=== PATIENT | female | born 1990 | race Caucasian/White ===

== ENCOUNTER 2018-08-16 10:01 | Emergency (ER) | payer MEDICAID, SELFPAY ==
[2018-08-16 10:08] VITALS: BP 97/55; PULSE 97; RESP 19; TEMP 36.5; O2SAT 98
[2018-08-16] MEDS: Ketorolac 30 MG/ML VIAL IVP (11:00)
[2018-08-16] MEDS: Normal Saline 1,000 ML 1000 ML IV (11:00)
[2018-08-16 11:07] LABS: Absolute Basophil Count 0.01 k/cumm (0.0-0.2); Absolute Eosinophil Count 0.17 k/cumm (0.0-0.7); Absolute Lymphocyte Count 1.09 k/cumm (1.2-3.4); Absolute Monocyte Count 0.55 k/cumm (0.11-0.7); Absolute Neutrophil Count 4.48 k/cumm (1.2-6.7); Basophils % 0.2; Eosinophils % 2.7; HGB 12.7 g/dL (12.0-15.5); Lymphocytes % 17.3; Mean Corp. HGB Concentration 33.4 g/dL (32.0-36.0); Mean Corpuscular Hemoglobin 31.4 pg (27.0-33.0); Mean Corpuscular Volume 94.1 fL (80-95); Mean Platelet Volume 11.4 fL (8.0-11.0); Monocytes % 8.7; Neutrophils % 71.1; Platelet Count 179 x1000/uL (130-400); RBC 4.04 m/cumm (4.00-5.20); RBC Distribution Width 13.1 % (11.7-14.6)
[2018-08-16 11:08] LABS: Bilirubin Negative (Negative); Blood Trace-intact (Negative); Clarity Clear; Glucose Negative (Negative); Ketones 15 mg/dL (Negative); Leukocyte Esterase Negative (Negative); Nitrite Negative (Negative); Specific Gravity 1.015 (1.005-1.025); Urobilinogen 0.2 EU/dL (Up TO 0.2); pH 6.5 (5-8)
[2018-08-16 11:15] LABS: Mono Screening Negative (Negative)
[2018-08-16 11:20] LABS: ALT 41 U/L (12-78); AST 36 U/L (15-37); Albumin 3.2 g/dL (3.4-5.0); Alkaline Phosphatase 81 U/L (46-116); Anion Gap 7.6 mmol/L (3-11); BUN 8 mg/dL (7-18); Bilirubin, Total 0.5 mg/dL (0.2-1.0); CO2 24.4 mmol/L (21.0-32.0); Chloride 104 mmol/L (98-107); Glucose 120 mg/dL (70-100); Lipase 158 U/L (73-393); Potassium 3.7 mmol/L (3.5-5.1); Sodium 136 mmol/L (136-145); Total Protein 6.9 g/dL (6.4-8.2)
[2018-08-16 11:21] LABS: Bacteria Rare HPF (Negative); C & S Indicated? No; Casts Negative LPF (Negative); Crystals Negative HPF (Negative); Epithelial Cells Few HPF (Negative); Mucus Trace (Negative); Other Cells Rare Renal (Negative); RBC 0-2 (0-2)
[2018-08-16] MEDS: Ondansetron O.D.T. 4 MG TABEF PO (11:28)
--- NOTE | 2018-08-16 13:16 | ED.GENADUL_ITS ---
Discharge Plan Disposition Patient Disposition: HOME Condition: Stable Discharge Details Chief Complaint: FlankPain Clinical Impression: Pneumonia Primary Care Provider: KENNA,LOCAL ED Provider: Dillon Arana Home Meds and New Rx's Prescriptions: New levofloxacin 750 mg tablet 750 mg PO DAILY Qty: 4 RF: 0 Continue dextroamphetamine-amphetamine [Adderall] 30 mg Tablet 1 tab PO BID RF: 0 gabapentin 300 mg Capsule 1 tab PO DAILY RF: 0 Discharge Instructions Instructions: Pneumonia (ED) Additional Instructions: Return to the ED for any new or worsening of your condition otherwise follow up with your PCP in 5 days for recheck. Referrals: Primary Care Provider [Outside] - 5 days (Follow up for re-check) Discharge Data Discharge Date/Time-TO BE ENTERED AT DEPARTURE: 08/16/18 14:06 Medical Decision Making Patient presenting to the emergency department for chief complaint of cold symptoms. Patient has had symptoms for 2 and half weeks now and she states that initially she improved and then over the last 3-4 days she has worsened. Patient does state that she went to [place] was told she had a viral illness yesterday but today felt worse. Patient does state that she has been having fever and chills. Physical exam is unremarkable except for some maxillary sinus tenderness and otherwise no lymphadenopathy, normal lung sounds, normal cardiac exam. Patient does have myalgias and generalized abdominal pain but nonsurgical abdomen. Plan to check labs , along with obtain records from [place] due to patient stating that they had done some scans and images there is well. Pending results patient given IV fluids and ketorolac. Review of results patient stated some nausea so patient was given ODT Zofran. Review of labs that show no significant leukocytosis and otherwise are nondiagnostic was able to review patient's records from yesterday's ER visit at [facility]. They did initially feel the patient had a viral illness but attempted to contact patient and inform her of the bilateral pneumonia the radiologist interpreted x-ray as. Did speak with patient in regards to admission she states that she has not started any antibiotics that she was unable to fill her prescription yesterday. They had attempted to place the patient on Levaquin 500 mg twice daily for 3 days. I did fully discuss risk versus benefit with patient of Levaquin and breast-feeding she was agreeable to being placed on exam. Given the pneumonia and previously having antibiotics for the last 3 months for urinary tract infection I do feel the patient needs to be on Levaquin 750 daily for 5 days. Again thoroughly discussed risk versus benefit with patient and she fully understands this. Patient encouraged to return for any new or worsening symptoms otherwise I do feel the patient should have a follow-up appointment in the next week with her primary care provider for reassessment. 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 After discussion of diagnosis and plan of care patient is no further needs, questions, or concerns and states clear understanding to return to the emergency department for any worsening symptoms. HPI General Mode of arrival: ambulatory . Date/Time Provider Initiated Documentation: 08/16/18 10:03 . Limitations to Documentation: no limitations . Information obtained by: patient, family, RN notes reviewed and old records reviewed . History of Present Illness 28 year old F presents to the emergency department with the chief complaint of Cold symptoms, described as moderate, with intensity rated at 8. Quality is described as aching, and is localized to the chest. Patient reports no radiation. Patient started experiencing this week(s) (2.5) and it has been intermittent. No exacerbating factors reported . Patient notes no other symptoms.. Patient did receive the following treatments prior to arrival, none Related Data Home Medications Medication Instructions Recorded Confirmed dextroamphetamine-amphetamine 1 tab PO BID 08/16/18 08/16/18 [Adderall] gabapentin 1 tab PO DAILY 08/16/18 08/16/18 levofloxacin 750 mg PO DAILY #4 tab 08/16/18 Previous Rx's Medication Instructions Recorded levofloxacin 750 mg PO DAILY #4 tab 08/16/18 Allergies Allergy/AdvReac Type Severity Reaction Status Date / Time Penicillins Allergy Unverified 08/16/18 10:14 General Stated Complaint: FlankPain SMOOTH: 3 Review of Systems Constitutional Reports body ache(s), Reports chills, Reports fever(s), Reports headache(s) and Reports malaise Eyes Denies eye discharge ENT Reports headache(s), Denies neck pain and Denies throat swelling Cardiovascular Denies chest pain Respiratory Reports chest congestion, Reports cough and Reports pain with cough Gastrointestinal Reports belching and Reports nausea Musculoskeletal Reports myalgias, Denies joint swelling and Denies neck pain Integumentary/Breasts Denies rash Neurologic Reports headache(s) Allergic/Immunologic Denies throat swelling Exam Const General: cooperative, comfortable and no acute distress Orientation: alert and awake [facility] Head: normal to inspection, normocephalic and atraumatic Ears: hearing grossly normal bilaterally and TM's normal bilaterally General nose exam: external nose normal Face and sinus: no erythema and sinus tenderness maxillary Mouth: oral mucosae normal, no drooling, no muffled voice and no trismus Throat: posterior oropharynx normal Neck Neck: normal visual inspection, full ROM, no lymphadenopathy, no meningeal signs , trachea midline and supple Resp Effort & Inspection: normal respiratory effort, able to speak in complete sentences and cough Quality of cough: dry Auscultation: clear to auscultation bilaterally Cardio Rate: regular rate Rhythm: regular rhythm Heart Sounds: S1 normal, S2 normal, normal S1 and S2, no click, no gallops, no murmurs and no rubs Skin General skin exam: no rashes or lesions noted and dry skin (warm) Neuro General: alert, awake, oriented x3, gait normal and moves all extremities Cognition: normal cognition Speech: speech normal Course Vital Signs Temperature 36.5 C 08/16/18 10:08 Pulse 97 H 08/16/18 10:08 Respiratory Rate 19 08/16/18 10:08 Blood Pressure 97/55 L 08/16/18 10:08 Pulse Oximetry 98 08/16/18 10:08 Temperature 36.5 C 08/16/18 10:08 Temperature Source Temporal Artery Scan 08/16/18 10:08 Pulse 97 H 08/16/18 10:08 Respiratory Rate 19 08/16/18 10:08 Respiratory Effort 08/16/18 10:12 Blood Pressure 97/55 L 08/16/18 10:08 Blood Pressure Position Sitting 08/16/18 10:08 Pulse Oximetry 98 08/16/18 10:08 Oxygen Delivery Method Room Air 08/16/18 10:08 Oxygen Flow Rate 0 08/16/18 10:08 Pain Level 6 08/16/18 10:16 Lab/Test Results Lab/Test Results: Laboratory Tests Range/Units 08/16/18 08/16/18 08/16/18 10:40 10:40 10:40 WBC (4.4-10.8) k/cumm 6.30 RBC (4.00-5.20) m/cumm 4.04 Hgb (12.0-15.5) g/dL 12.7 Hct (36.0-46.0) % 38.0 MCV (80-95) fL 94.1 MCH (27.0-33.0) pg 31.4 MCHC (32.0-36.0) g/dL 33.4 RDW (11.7-14.6) % 13.1 Plt Count (130-400) x1000/uL 179 MPV (8.0-11.0) fL 11.4 H Immature Gran % 0.0 Neutrophils % 71.1 Lymphocytes % 17.3 Monocytes % 8.7 Eosinophils % 2.7 Basophils % 0.2 Absolute Neutrophils (1.2-6.7) k/cumm 4.48 Absolute Lymphocytes (1.2-3.4) k/cumm 1.09 L Absolute Monocytes (0.11-0.7) k/cumm 0.55 Absolute Eosinophils (0.0-0.7) k/cumm 0.17 Absolute Basophils (0.0-0.2) k/cumm 0.01 Sodium (136-145) mmol/L 136 Potassium (3.5-5.1) mmol/L 3.7 Chloride (98-107) mmol/L 104 Carbon Dioxide (21.0-32.0) mmol/L 24.4 Anion Gap (3-11) mmol/L 7.6 BUN (7-18) mg/dL 8 Creatinine (0.55-1.02) mg/dL 0.50 L Estimated GFR/1.73 m2 (mL/min/1.73m2) >= 60.00 Glucose (70-100) mg/dL 120 H Lactate (0.6-1.4) mmol/L 1.0 Calcium (8.5-10.1) mg/dL 8.0 L Total Bilirubin (0.2-1.0) mg/dL 0.5 AST (15-37) U/L 36 ALT (12-78) U/L 41 Alkaline Phosphatase (46-116) U/L 81 Total Protein (6.4-8.2) g/dL 6.9 Albumin (3.4-5.0) g/dL 3.2 L Lipase (73-393) U/L 158 Urine Color (Yellow) Urine Clarity Urine pH (5-8) Ur Specific [place] (1.005-1.025) Urine Protein (Negative) mg/dL Urine Ketones (Negative) mg/dL Urine Blood (Negative) Urine Nitrite (Negative) Urine Bilirubin (Negative) Urine Urobilinogen (Up TO 0.2) EU/dL Ur Leukocyte Esterase (Negative) Urine RBC (0-2) Urine WBC (0-5) HPF Ur Epithelial Cells (Negative) HPF Urine Crystals (Negative) HPF Urine Bacteria (Negative) HPF Urine Casts (Negative) LPF Urine Mucus (Negative) Urine Other (Negative) Ur Culture Indicated? Urine Glucose (Negative) mg/dL Monoscreen (Negative) Range/Units 08/16/18 08/16/18 10:40 10:40 WBC (4.4-10.8) k/cumm RBC (4.00-5.20) m/cumm Hgb (12.0-15.5) g/dL Hct (36.0-46.0) % MCV (80-95) fL MCH (27.0-33.0) pg MCHC (32.0-36.0) g/dL RDW (11.7-14.6) % Plt Count (130-400) x1000/uL MPV (8.0-11.0) fL Immature Gran % Neutrophils % Lymphocytes % Monocytes % Eosinophils % Basophils % Absolute Neutrophils (1.2-6.7) k/cumm Absolute Lymphocytes (1.2-3.4) k/cumm Absolute Monocytes (0.11-0.7) k/cumm Absolute Eosinophils (0.0-0.7) k/cumm Absolute Basophils (0.0-0.2) k/cumm Sodium (136-145) mmol/L Potassium (3.5-5.1) mmol/L Chloride (98-107) mmol/L Carbon Dioxide (21.0-32.0) mmol/L Anion Gap (3-11) mmol/L BUN (7-18) mg/dL Creatinine (0.55-1.02) mg/dL Estimated GFR/1.73 m2 (mL/min/1.73m2) Glucose (70-100) mg/dL Lactate (0.6-1.4) mmol/L Calcium (8.5-10.1) mg/dL Total Bilirubin (0.2-1.0) mg/dL AST (15-37) U/L ALT (12-78) U/L Alkaline Phosphatase (46-116) U/L Total Protein (6.4-8.2) g/dL Albumin (3.4-5.0) g/dL Lipase (73-393) U/L Urine Color (Yellow) Yellow Urine Clarity Clear Urine pH (5-8) 6.5 Ur Specific [place] (1.005-1.025) 1.015 Urine Protein (Negative) mg/dL Negative Urine Ketones (Negative) mg/dL 15 H Urine Blood (Negative) Trace-intact H Urine Nitrite (Negative) Negative Urine Bilirubin (Negative) Negative Urine Urobilinogen (Up TO 0.2) EU/dL 0.2 Ur Leukocyte Esterase (Negative) Negative Urine RBC (0-2) 0-2 Urine WBC (0-5) HPF 3-5 Ur Epithelial Cells (Negative) HPF Few Urine Crystals (Negative) HPF Negative Urine Bacteria (Negative) HPF Rare Urine Casts (Negative) LPF Negative Urine Mucus (Negative) Trace Urine Other (Negative) Rare renal Ur Culture Indicated? No Urine Glucose (Negative) mg/dL Negative Monoscreen (Negative) Negative
[2018-08-16 13:51] VITALS: BP 103/62; PULSE 90; RESP 18; TEMP 36.8; O2SAT 99
[2018-08-16] MEDS: LEVOFLOXACIN 500 MG, LEVOFLOXACIN 250 MG 750 MG PO (13:51)
--- NOTE | 2018-08-16 16:11 | NUR.NOTE ---
Candle Cutter Mom: Alysha Chau : 02/17/1987 : not present at visit : Partner: Alexei Giraldo Date/Time of contact: 08/16/2018 @ [phone] Situation/Reason for call: ED phoned Center to request a breast pump and kit for mom with plan for volunteer to deliver ER visit for pneumonia per maternal report Breast engorgement/discomfort secondary to milk stasis, child at home Background/Information: IBCLC visited mom and partner in ED to offer assistance with assembling the pump kit. Mom notes this is very different from her pump. IBCLC reviewed/assisted pump function, operation and assembly, advising comfortable flange fit and maximum suction pressures during pumping. IBCLC advised mom to pump for about 15-20 minutes, anticipating that she may have two let-downs. IBCLC provided surplus collection containers. Mom expressed approximately 200 ml. Mom states she has several children /c partner and he has 2 children from a prior relationship. Her youngest child is 4 months of age and oldest is 9 years. Mom double pumped and partner supported mom by providing a sandwich. Mom denies any dense or warm areas. Breast skin tone is consistent; there were no signs of erythema. Venation was WNL. Mom denies mastitis citing frequent milk removal and some supplementing /c formula. Examination was limited to interview and observation; palpation was deferred per maternal preference. Mom states nipple comfort, skin is intact and blanches during pumping. Mom noted that her milk production has declined over the last couple of days and IBCLC counseled that milk production may decline with a systemic infections so her body can direct healing to infection. IBCLC counseled risk of mastitis, advising frequent feeding or milk removal and self-care including rest, nutrition and antibiotics as prescribed. IBCLC reviewed s/s of mastitis and advised contacting her provider if any concerns. IBCLC advised mom to contact her lithopress operator re: medication orders with any concerns about breastmilk, noting that her lithopress operator is aware of any risks specific to her infant. Per interview mom had recently moved to the area. Her current provider is in [place] and the stenographer secretary visited /c a plan to make connection with local provider for f/u within the next 5 days. IBCLC provided contact information and availability to mom. Mom states increased breast comfort and plan to wait for f/u POC before leaving. Ciara Ortiz-Ramila, RNC, IBCLC, BSN, MST Candle Cutter, [facility], [facility] [place] [address] Nursing Note:
--- NOTE | 2018-08-19 12:46 | PDOC.ERCMPRO ---
Care Management Progress Note 08/19/18-Pt seen on 08/16/18 for pneumonia by PEDRO Arana. Pt needs to establish a PCP with f/u within 5 days. Referral sent to [facility].
== END 2018-08-16 14:06 | disposition home or self-care (01) ==
PROVIDERS: Emergency Provider Nurse Practitioner Family
DX: J18.9 Pneumonia, unspecified organism (principal); M79.1 Myalgia; R11.0 Nausea; Z79.2 Long term (current) use of antibiotics
CPT/HCPCS: 80053; 81025; 83690; 96374; 99284; 81003; 81015; 83605; 85025; 86308; J1885

== ENCOUNTER 2020-01-04 13:47 | Emergency (ER) | payer MEDICAID, SELFPAY ==
[2020-01-04] VITALS (43 sets, daily range): BP systolic 98–152; BP diastolic 48–128; PULSE 88–113; RESP 20; TEMP 37.3; O2SAT 93–100
[2020-01-04] MEDS: Lactated Ringers 1,000 ML 1000 ML IV ×2 (14:30→14:34)
[2020-01-04 14:36] LABS: Lactate 0.7 mmol/L (0.6-1.4)
[2020-01-04 14:37] LABS: Abs Immature Grans 0.05 k/cumm (0.0-0.09); Absolute Basophil Count 0.03 k/cumm (0.0-0.2); Absolute Eosinophil Count 0.29 k/cumm (0.0-0.7); Absolute Lymphocyte Count 0.97 k/cumm (1.2-3.4); Absolute Monocyte Count 1.37 k/cumm (0.11-0.7); Absolute Neutrophil Count 13.64 k/cumm (1.2-6.7); Basophils % 0.2; Eosinophils % 1.8; HCT 42.5 % (36.0-46.0); HGB 14.7 g/dL (12.0-15.5); Immature Grans % 0.3 %; Lymphocytes % 5.9; Mean Corp. HGB Concentration 34.6 g/dL (32.0-36.0); Mean Corpuscular Hemoglobin 31.1 pg (27.0-33.0); Mean Corpuscular Volume 89.9 fL (80-95); Mean Platelet Volume 10.3 fL (8.0-11.0); Monocytes % 8.4; Neutrophils % 83.4; Platelet Count 235 x1000/uL (130-400); RBC 4.73 m/cumm (4.00-5.20); RBC Distribution Width 13.5 % (11.7-14.6); White Blood Cell Count 16.36 k/cumm (4.4-10.8)
[2020-01-04 14:59] LABS: ALT 43 U/L (14-59); AST 21 U/L (15-37); Albumin 4.1 g/dL (3.4-5.0); Alkaline Phosphatase 60 U/L (46-116); Anion Gap 12.8 mmol/L (3-11); BUN 13 mg/dL (7-18); Bilirubin, Total 1.4 mg/dL (0.2-1.0); CO2 24.2 mmol/L (21.0-32.0); CREATININE 0.57 mg/dL (0.55-1.02); Calcium 8.7 mg/dL (8.5-10.1); Chloride 103 mmol/L (98-107); Glucose 89 mg/dL (74-106); Potassium 3.5 mmol/L (3.5-5.1); Sodium 140 mmol/L (136-145); Total Protein 8.2 g/dL (6.4-8.2)
[2020-01-04] MEDS: Ketorolac 15 MG/ML VIAL IVP (15:11)
[2020-01-04 15:35] LABS: Troponin I < 0.05 ng/Ml (<0.06)
--- NOTE | 2020-01-04 15:45 | DI.RAD_ITS ---
EXAM: XR CHEST 2V PA LATERAL CLINICAL HISTORY: cough. TECHNIQUE: 2D digital imaging was performed. COMPARISON: No exams were available for comparison FINDINGS: LUNGS: Clear. No pleural abnormality seen. HEART: Normal. MEDIASTINUM: Normal. OTHER FINDINGS:Normal. BONE:Normal. IMPRESSION: No acute pulmonary findings.
[2020-01-04 16:18] LABS: Bilirubin Negative (Negative); Blood Negative (Negative); Clarity Clear (Clear); Glucose Negative (Negative); Ketones >=160 mg/dL (Negative); Leukocyte Esterase Negative (Negative); Nitrite Negative (Negative); Specific Gravity 1.025 (1.005-1.025); Urobilinogen 0.2 EU/dL (Up TO 0.2)
[2020-01-04 16:34] LABS: Bacteria Moderate HPF (Negative); C & S Indicated? No/Sq. Contamination; Casts Negative LPF (Negative); Crystals Negative HPF (Negative); Epithelial Cells Moderate HPF (Negative); Mucus Negative (Negative); RBC Negative HPF (0-2)
--- NOTE | 2020-01-04 16:49 | DI.VRAD_ITS ---
PROCEDURE INFORMATION: Exam: XR Chest, 2 Views Exam date and time: 01/04/2020 4:26 PM Age: 29 years old Clinical indication: Cough TECHNIQUE: Imaging protocol: XR of the chest Views: 2 views. COMPARISON: No relevant prior studies available. FINDINGS: Lungs: Unremarkable. No consolidation. Pleural space: Unremarkable. No pleural effusion. No pneumothorax. Heart/Mediastinum: Unremarkable. No cardiomegaly. Bones/joints: Unremarkable. IMPRESSION: No acute cardiopulmonary process. Dictated and Authenticated by: Benito Taylor MD. Ordering:MILY Nolasco MD
[2020-01-04] MEDS: Normal Saline 1,000 ML 1000 ML IV (18:24)
[2020-01-04 18:29] LABS: Anion Gap 8.9 mmol/L (3-11); BUN 12 mg/dL (7-18); CO2 23.1 mmol/L (21.0-32.0); CREATININE 0.55 mg/dL (0.55-1.02); Chloride 109 mmol/L (98-107); Glucose 80 mg/dL (74-106); Potassium 3.5 mmol/L (3.5-5.1); Sodium 141 mmol/L (136-145)
--- NOTE | 2020-01-04 19:04 | ED.GENADUL_ITS ---
Discharge Plan Disposition Patient Disposition: HOME Condition: Improving Discharge Details Chief Complaint: Nausea/Vomit/Diar Clinical Impression: Loose stools, Acute dehydration, Myalgia Primary Care Provider: Helga,Local ED Provider: Gaurav Chen Home Meds and New Rx's Prescriptions: Continued dextroamphetamine-amphetamine [Adderall] 30 mg Tablet 1 tab PO BID RF: 0 gabapentin 300 mg Capsule 1 tab PO DAILY RF: 0 Discharge Instructions Instructions: Dehydration (ED), Acute Diarrhea (ED), Viral Syndrome (ED) Additional Instructions: Please drink plenty of fluids to stay hydrated. Please contact your primary care physician to arrange follow-up. Call tomorrow. Return to the ER for any worsening or new concerning symptoms. Stand Alone Forms: Work Release Medical Decision Making 29-year-old female here generally not feeling well with myalgias, loose stool, chills, and dry cough over the past 3 days. Patient does have mild diffuse abdominal discomfort with no focal tenderness and no peritoneal findings. Concern for viral illness. Labs reviewed: Patient does have leukocytosis, lactate negative. Mild elevation of bilirubin, AST and ALT negative. Influenza testing negative. Troponin negative. Patient was dehydrated -mild anion gap with ketones in her urine. She was re hydrated with IV fluid bolus and was tolerating IV fluids on reassessment. Repeat chemistry showed resolution of anion gap. A medical screening exam was performed. Plan for discharge with outpatient follow-up. Patient was encouraged to drink plenty fluids to maintain hydration. She was encouraged to follow-up with her primary care physician to be seen early this week and reassessment. Disposition decision was made weighing the risks and benefits of hospitalization versus outpatient treatment, the risk for further decompensation, and the patient's wishes. The patient was stable and requested discharge. Prior to discharge, my usual and customary return precautions were reviewed with the patient - this included follow-up instructions and reason to return to the emergency department if condition worsens, does not improve as expected, or other new concerns arise. Lab Data Lab results reviewed: Yes I reviewed the patient's lab results. HPI General Mode of arrival: ambulatory . Date/Time Provider Initiated Documentation: 01/04/20 14:13 . Limitations to Documentation: no limitations . Information obtained by: patient . HPI Narrative: 29-year-old female here generally not feeling well. Symptoms have persisted over the past 3 days. She describes loose stool, body aches, chills, intermittent dry cough and generally does not feel well. Patient also notes left ear discomfort. Patient notes she has had intermittent illness for months with intermittent cough and runny nose. Related Data Home Medications Medication Instructions Recorded Confirmed dextroamphetamine-amphetamine 1 tab PO BID 08/16/18 01/04/20 [Adderall] gabapentin 1 tab PO DAILY 08/16/18 01/04/20 Allergies Allergy/AdvReac Type Severity Reaction Status Date / Time Penicillins Allergy Unverified 01/04/20 14:27 General Stated Complaint: Nausea/Vomit/Diar SMOOTH: 3 Review of Systems All systems reviewed & are unremarkable except as noted in HPI and below Constitutional Constitutional: Reports body ache(s) and Reports chills ENT Ears, Nose, Mouth, and Throat: Reports as per HPI Respiratory Respiratory: Reports cough Genitourinary Genitourinary: Denies dysuria Integumentary/Breasts Skin/Breast: Denies rash [facility] Social History Smoking/Tobacco Use Status: Former Tobacco Use Drug use: Never Substance use type: does not use Do you feel safe at home: Yes Do you feel safe in your relationship?: Yes Exam Const General: cooperative and no acute distress HENMT Ears: external ears normal, no periauricular adenopathy and TM abnormal bulging bilaterally; not with effusion and not erythematous Mouth: moist mucous membranes Throat: posterior oropharynx normal Eyes Conjunctivae: normal conjunctivae Sclera: normal sclerae Neck Neck: no lymphadenopathy, trachea midline and supple Resp Auscultation: clear to auscultation bilaterally, no rales, no rhonchi and no wheezes Cardio Jugular venous pressure: no JVD Rate: regular rate and not tachycardic Rhythm: regular rhythm GI Palpation: soft, not firm, no guarding, no masses, not rigid and tender (Mild diffuse) with no rebound tenderness Auscultation: normal bowel sounds Skin General skin exam: no rashes or lesions noted Neuro General: alert, awake, oriented x3 and tone normal Extrem General: no edema Psych Appearance: grossly normal Mental Status: mental status grossly normal Affect: anxious affect Course Vital Signs Vital signs: Vital Signs Temperature 37.3 C 01/04/20 14:03 Pulse 113 H 01/04/20 14:03 Respiratory Rate 01/04/20 14:03 Blood Pressure 152/128 H 01/04/20 14:03 Pulse Oximetry 97 01/04/20 14:03 Temperature 37.3 C 01/04/20 14:03 Temperature Source Skin 01/04/20 14:03 Pulse 90 01/04/20 18:31 Respiratory Rate 20 01/04/20 14:03 Respiratory Effort 01/04/20 14:21 Blood Pressure 99/55 L 01/04/20 18:31 Blood Pressure Mean 64 01/04/20 18:31 Blood Pressure Position Sitting 01/04/20 14:03 Pulse Oximetry 98 01/04/20 18:31 Oxygen Delivery Method Room Air 01/04/20 14:03 Oxygen Flow Rate 0 01/04/20 14:03 Pain Level 10 01/04/20 14:03 Lab/Test Results Lab/Test Results: 01/04/20 14:35 Nasopharynx Influenza Types A,B Antigen - Final 01/04/20 15:10 Blood Blood Culture - Pending 01/04/20 14:25 Blood Blood Culture - Pending Laboratory Tests Range/Units 01/04/20 01/04/20 01/04/20 14:25 14:25 14:25 WBC (4.4-10.8) k/cumm 16.36 H RBC (4.00-5.20) m/cumm 4.73 Hgb (12.0-15.5) g/dL 14.7 Hct (36.0-46.0) % 42.5 MCV (80-95) fL 89.9 MCH (27.0-33.0) pg 31.1 MCHC (32.0-36.0) g/dL 34.6 RDW (11.7-14.6) % 13.5 Plt Count (130-400) x1000/uL 235 MPV (8.0-11.0) fL 10.3 Immature Gran % % 0.3 Neutrophils % 83.4 Lymphocytes % 5.9 Monocytes % 8.4 Eosinophils % 1.8 Basophils % 0.2 Absolute Neutrophils (1.2-6.7) k/cumm 13.64 H Absolute Lymphocytes (1.2-3.4) k/cumm 0.97 L Absolute Monocytes (0.11-0.7) k/cumm 1.37 H Absolute Eosinophils (0.0-0.7) k/cumm 0.29 Absolute Basophils (0.0-0.2) k/cumm 0.03 Sodium (136-145) mmol/L 140 Potassium (3.5-5.1) mmol/L 3.5 Chloride (98-107) mmol/L 103 Carbon Dioxide (21.0-32.0) mmol/L 24.2 Anion Gap (3-11) mmol/L 12.8 H BUN (7-18) mg/dL 13 Creatinine (0.55-1.02) mg/dL 0.57 Estimated GFR/1.73 m2 (mL/min/1.73m2) >= 60.00 Glucose (74-106) mg/dL 89 Lactate (0.6-1.4) mmol/L 0.7 Calcium (8.5-10.1) mg/dL 8.7 Total Bilirubin (0.2-1.0) mg/dL 1.4 H AST (15-37) U/L 21 ALT (14-59) U/L 43 Alkaline Phosphatase (46-116) U/L 60 Troponin I (<0.06) ng/Ml Total Protein (6.4-8.2) g/dL 8.2 Albumin (3.4-5.0) g/dL 4.1 Urine Color (Yellow) Urine Clarity (Clear) Urine pH (5-8) Ur Specific [place] (1.005-1.025) Urine Protein (Negative) mg/dL Urine Ketones (Negative) mg/dL Urine Blood (Negative) Urine Nitrite (Negative) Urine Bilirubin (Negative) Urine Urobilinogen (Up TO 0.2) EU/dL Ur Leukocyte Esterase (Negative) Urine RBC (0-2) HPF Urine WBC (0-5) HPF Ur Epithelial Cells (Negative) HPF Urine Crystals (Negative) HPF Urine Bacteria (Negative) HPF Urine Casts (Negative) LPF Urine Mucus (Negative) Ur Culture Indicated? Urine Glucose (Negative) mg/dL Range/Units 01/04/20 01/04/20 01/04/20 14:25 16:08 18:12 WBC (4.4-10.8) k/cumm RBC (4.00-5.20) m/cumm Hgb (12.0-15.5) g/dL Hct (36.0-46.0) % MCV (80-95) fL MCH (27.0-33.0) pg MCHC (32.0-36.0) g/dL RDW (11.7-14.6) % Plt Count (130-400) x1000/uL MPV (8.0-11.0) fL Immature Gran % % Neutrophils % Lymphocytes % Monocytes % Eosinophils % Basophils % Absolute Neutrophils (1.2-6.7) k/cumm Absolute Lymphocytes (1.2-3.4) k/cumm Absolute Monocytes (0.11-0.7) k/cumm Absolute Eosinophils (0.0-0.7) k/cumm Absolute Basophils (0.0-0.2) k/cumm Sodium (136-145) mmol/L 141 Potassium (3.5-5.1) mmol/L 3.5 Chloride (98-107) mmol/L 109 H Carbon Dioxide (21.0-32.0) mmol/L 23.1 Anion Gap (3-11) mmol/L 8.9 BUN (7-18) mg/dL 12 Creatinine (0.55-1.02) mg/dL 0.55 Estimated GFR/1.73 m2 (mL/min/1.73m2) >= 60.00 Glucose (74-106) mg/dL 80 Lactate (0.6-1.4) mmol/L Calcium (8.5-10.1) mg/dL 7.0 L Total Bilirubin (0.2-1.0) mg/dL AST (15-37) U/L ALT (14-59) U/L Alkaline Phosphatase (46-116) U/L Troponin I (<0.06) ng/Ml < 0.05 Total Protein (6.4-8.2) g/dL Albumin (3.4-5.0) g/dL Urine Color (Yellow) Yellow Urine Clarity (Clear) Clear Urine pH (5-8) 6.0 Ur Specific [place] (1.005-1.025) 1.025 Urine Protein (Negative) mg/dL Trace H Urine Ketones (Negative) mg/dL >=160 H Urine Blood (Negative) Negative Urine Nitrite (Negative) Negative Urine Bilirubin (Negative) Negative Urine Urobilinogen (Up TO 0.2) EU/dL 0.2 Ur Leukocyte Esterase (Negative) Negative Urine RBC (0-2) HPF Negative Urine WBC (0-5) HPF 5-10 Ur Epithelial Cells (Negative) HPF Moderate Urine Crystals (Negative) HPF Negative Urine Bacteria (Negative) HPF Moderate Urine Casts (Negative) LPF Negative Urine Mucus (Negative) Negative Ur Culture Indicated? No/sq. contamination Urine Glucose (Negative) mg/dL Negative POC- Test(urine) Negative
== END 2020-01-04 19:35 | disposition home or self-care (01) ==
PROVIDERS: Emergency Provider Student in an Organized Health Care Education/Training Program
DX: R10.84 Generalized abdominal pain (principal); R19.7 Diarrhea, unspecified; E86.0 Dehydration; M79.10 Myalgia, unspecified site; B34.9 Viral infection, unspecified
CPT/HCPCS: 36415; 80048; 80053; 87040; 87449; 96361; 96374; 99284; 71046; 81003; 81015; 83605; 84484; 85025; J1885